=== PATIENT | male | born 1990 | race Two or more races ===

== ENCOUNTER 2021-08-27 09:13 | Emergency (ER) | payer OTHER ==
[2021-08-27] MEDS ORDERED: ACETAMINOPHEN 325 MG TABLET (FP) PO ONE (09:44)
[2021-08-27] MEDS ORDERED: ACETAMINOPHEN 325 MG TABLET (FP) ONE (10:01)
[2021-08-27 10:21] VITALS: TEMP 98.1; BMI 34.0
[2021-08-27 11:23] LABS: BASO % 0.3 % (0-2.0); EOS % 1.7 % (0-4.5); HEMATOCRIT 42.4 % (35.4-49); HEMOGLOBIN 14.1 GM/dL (11.7-16.9); LYMPH % 26.6 % (8-40); MCH 28.1 pg (25.7-33.7); MCHC 33.2 g/dl (32.0-35.9); MEAN CELL VOLUME 84.7 fl (80-96); MEAN PLT VOLUME 8.4 fl (7.5-11.1); NEUT % 63.4 % (42.8-82.8); PLATELET COUNT 303 10^3/uL (134-434); RDW 13.7 % (11.9-15.9); WHITE BLOOD COUNT 9.6 K/mm3 (4.0-10.0)
[2021-08-27 11:43] LABS: CHLORIDE 102 mmol/L (98-107); SODIUM 136 mmol/L (136-145)
[2021-08-27 11:49] LABS: CALCIUM 9.5 mg/dL (8.5-10.1)
[2021-08-27 11:50] LABS: ALBUMIN 3.9 g/dl (3.4-5.0); ANION GAP 7 MMOL/L (8-16); BLOOD UREA NITROGEN 10.2 mg/dL (7-18); CO2 27 mmol/L (21-32); GLUCOSE,RANDOM 191 mg/dL (74-106)
[2021-08-27 11:53] LABS: SGOT/AST 23 U/L (15-37); SGPT/ALT 51 U/L (13-61)
[2021-08-27 11:55] LABS: BILIRUBIN,TOTAL 0.5 mg/dL (0.2-1); TOT PROT 7.6 g/dl (6.4-8.2)
[2021-08-27 11:56] LABS: ALK PHOS 73 U/L (45-117)
[2021-08-27 12:40] VITALS: BP 155/99; PULSE 67
== END 2021-08-27 12:40 | disposition home or self-care (01) ==
LOC: JER 09:13
DX: R07.9 Chest pain, unspecified (principal)
CPT/HCPCS: 36415; 71046-TC-FY; 80053; 84484; 85025; 93005; 93010; 99285-25; C9803; U0003; U0005